=== PATIENT | female | born 1995 | race African-American/Black ===

== ENCOUNTER 2017-05-02 12:09 | Emergency (ER) | payer SELFPAY ==
[2017-05-02 12:16] VITALS: BP 145/89; PULSE 77; TEMP 98.2; BMI 44.1
--- NOTE | 2017-05-02 13:15 | PDOC ---
History of Present Illness - General Chief Complaint: Pain Stated Complaint: PAIN Time Seen by Provider: 05/02/17 12:51 History Source: Patient Exam Limitations: No Limitations - History of Present Illness Initial Comments: 05/02/17 13:09 Patient is a 22-year-old female, [id number] diabetic currently started taking metformin. Patient presents with "weird sensation in her chest". Small morning she felt a palpable mass between both breasts on the medial aspect of the right breast where there is a scar noted patient has history of abscess to exactly same area after she felt the nodule she started to feel short of breath and pain in her chest. Pain is Nonradiating, patient also states that she recently started taking metformin and has not been feeling well on it. Patient lives in a home with no air conditioning only a fan. Upon arrival to emergency department patient denies any symptoms. No chest pain or shortness of breath, no back pain or jaw pain, no arm pain. Past Medical History: Denies. Allergies: No known allergies Medications: Family History: Non-contributory Social History: Denies smoking, alcohol use, or IVDU Vital signs on arrival are notable for pulse of 77. Review of Systems GENERAL/CONSTITUTIONAL: No fever or chills. No weakness. No weight change. HEAD, EYES, EARS, NOSE AND THROAT: No change in vision. No ear pain or discharge. No sore throat. CARDIOVASCULAR: No chest pain or shortness of breath. RESPIRATORY: No cough, wheezing, or hemoptysis. GASTROINTESTINAL: No nausea, vomiting, diarrhea or constipation. No rectal bleeding. GENITOURINARY: No dysuria, frequency, or change in urination. MUSCULOSKELETAL: No joint or muscle swelling or pain. No neck or back pain. SKIN AND BREASTS: No rash or easy bruising. There is a palpable hardened area to right medial breast with scar tissue NEUROLOGIC: No headache, vertigo, loss of consciousness, or loss of sensation. PSYCHIATRIC: No depression or anxiety. ENDOCRINE: No increased thirst. No abnormal weight change. HEMATOLOGIC/LYMPHATIC: No anemia, easy bleeding, or history of blood clots. ALLERGIC/IMMUNOLOGIC: No hives or skin allergy. No latex allergy. Physical Exam: GENERAL: The patient is awake, alert, and fully oriented, in no acute distress. EYES: Pupils equal, round and reactive to light, extraocular movements intact, sclera anicteric, conjunctiva clear. ENT: Ears normal, nares patent, oropharynx clear without exudates. Moist mucous membranes. No uvula deviation NECK: Normal range of motion, supple without lymphadenopathy, JVD, or masses. LUNGS: Breath sounds equal, clear to auscultation bilaterally. No wheezes, and no crackles. HEART: Regular rate and rhythm, normal S1 and S2 without murmur, rub or gallop. ABDOMEN: Soft, nontender, normoactive bowel sounds. No guarding, no rebound. No masses. No bruising or abrasions MUSCULOSKELETAL: Normal range of motion, no edema. No clubbing or cyanosis. No cords, erythema, or tenderness. No CVA Tenderness with fist Palpation. Pain on palpation to musculature of chest. NEUROLOGICAL: Cranial nerves II through XII grossly intact. Normal speech, normal gait SKIN: Scar tissue to the right medial breast, palpable hardened area with no warmth or surrounding redness. Streaking. Past History - Past Medical History Allergies/Adverse Reactions: Allergies Allergy/AdvReac Type Severity Reaction Status Date / Time No Known Allergies Allergy Verified 05/02/17 12:17 Home Medications: Ambulatory Orders Albuterol Sulfate Inhaler - [Ventolin HFA Inhaler -] 1 - 2 inh PO Q4H #1 inhaler 05/02/17 Ibuprofen [Motrin -] 600 mg PO TID #21 tablet 05/02/17 Metformin HCl 500 mg PO DAILY 05/02/17 Diabetes: Yes - Immunization History Immunization Up to Date: Yes - Psycho/Social/Smoking Cessation Hx Anxiety: No Suicidal Ideation: No Smoking Status: Yes Smoking History: Current every day smoker Number of Cigarettes Smoked Daily: 4 Information on smoking cessation initiated: No *Physical Exam - Vital Signs Last Vital Signs Temp Pulse Resp BP Pulse Ox 98.2 F 77 18 145/89 100 05/02/17 12:13 05/02/17 12:13 05/02/17 12:13 05/02/17 12:13 05/02/17 12:13 ED Treatment Course - RADIOLOGY Radiology Studies Ordered: Category Date Time Status CHEST PA & LAT [RAD] Stat Radiology 05/02/17 13:06 Ordered Medical Decision Making - Medical Decision Making 05/02/17 13:15 A/P: Patient with chest pain, reproducible with palpation of the chest. Patient with clinical signs of costochondritis however will rule out cardiac etiology. PLan: Chest x-ray, EKG, blood glucose Fingerstick was 169, chest x-ray with no acute cardiopulmonary disease. Twelve-lead EKG was performed and reviewed by me. There is normal sinus rhythm with a normal rate. The axis is normal. The intervals are normal. There are no ST or T wave abnormalities. Impression: Normal twelve-lead EKG. We'll give Motrin 600 mg then reassess patient's pain level, patient reports that pain comes and goes, producible with movement. 05/02/17 14:43 Patient is requesting to leave. Reports that she still has pain, was made aware that the chest xray and the EKG are normal. She is stating that she has mild discomfort on inspiration Combivent given. She states she feels better after Combivent Patient with costochondritis will DC patient home. I discussed the physical exam findings, ancillary test results and final diagnoses with the patient. I answered all of the patient's questions. The patient was satisfied with the care received and felt comfortable with the discharge plan and treatment plan. The patient will call to arrange follow-up and will return to the Emergency Department with any new, persistent or worsening symptoms. *DC/Admit/Observation/Transfer Diagnosis at time of Disposition: Costal chondritis - Discharge Dispostion Disposition: HOME Condition at time of disposition: Good Admit: No - Prescriptions Prescriptions: Ibuprofen [Motrin -] 600 mg PO TID #21 tablet Albuterol Sulfate Inhaler - [Ventolin HFA Inhaler -] 1 - 2 inh PO Q4H #1 inhaler - Referrals Referrals: Eliazar Leos MD [Primary Care Provider] - - Patient Instructions Printed Discharge Instructions: DI for Costochondritis Additional Instructions: Please refrain from laying on stomach. Please return to the Er with any increased pain, shortness of breath, back pain , jaw pain, fever, or any other concerns. - Post Discharge Activity Work/School Note: Back to Work
[2017-05-02] MEDS ORDERED: IBUPROFEN 600 MG TABLET (FP) PO ONE ×2 (13:54→13:57)
[2017-05-02] MEDS ORDERED: ALBUTEROL SO4 2.5/IPRATROPIUM 0.5 INH SOL 3 ML VIAL.NEB. NEB ONE ×2 (14:32→14:44)
--- NOTE | 2017-05-03 12:54 | EKG ---
Test Reason : Blood Pressure : / mmHG Vent. Rate : 064 BPM Atrial Rate : 064 BPM P-R Int : 154 ms QRS Dur : 098 ms QT Int : 388 ms P-R-T Axes : 026 041 027 degrees QTc Int : 400 ms NORMAL SINUS RHYTHM WITH SINUS ARRHYTHMIA NORMAL ECG NO PREVIOUS ECGS AVAILABLE Confirmed by ELISHA LIRIANO MD ([id number]) on 05/03/2017 12:54:06 PM Referred By: TERESA Confirmed By:ELISHA LIRIANO MD
== END 2017-05-02 15:03 | disposition home or self-care (01) ==
LOC: JERFT 12:09
PROC: 3E0F7GC Introduction of Other Therapeutic Substance into Respiratory Tract, Via Natural or Artificial Opening (ICD-10-PCS; principal; 2017-05-02)
DX: M94.0 Chondrocostal junction syndrome [Tietze] (principal); E11.9 Type 2 diabetes mellitus without complications; Z79.84 Long term (current) use of oral hypoglycemic drugs; F17.210 Nicotine dependence, cigarettes, uncomplicated
CPT/HCPCS: 71020-TC; 93005; 93010; 99281-25

== ENCOUNTER 2021-09-06 01:04 | Emergency (ER) | payer OTHER ==
[2021-09-06 01:25] VITALS: BP 144/103; PULSE 117; TEMP 98.4; BMI 34.0
[2021-09-06] MEDS ORDERED: SODIUM CHLORIDE 0.9% 500 ML INFUS.BAG IV ONE (01:37)
[2021-09-06] MEDS ORDERED: ACETAMINOPHEN 325 MG TABLET (FP) PO ONE (01:37)
[2021-09-06] MEDS ORDERED: ONDANSETRON 4 MG/2 ML VIAL IVPUSH ONE (02:13)
[2021-09-06] MEDS ORDERED: ONDANSETRON 4 MG/2 ML VIAL ONE (02:42)
[2021-09-06] MEDS ORDERED: ACETAMINOPHEN 325 MG TABLET (FP) ONE (02:42)
== END 2021-09-06 03:29 | disposition left against medical advice (07) ==
LOC: JER 01:04
PROC: 3E033GC Introduction of Other Therapeutic Substance into Peripheral Vein, Percutaneous Approach (ICD-10-PCS; principal; 2021-09-06)
DX: R10.30 Lower abdominal pain, unspecified (principal)
CPT/HCPCS: 99283-25

== ENCOUNTER 2022-05-18 18:26 | Emergency (ER) | payer OTHER ==
[2022-05-18 18:39] VITALS: RESP 18; TEMP 98.1; BMI 36.1
[2022-05-18] MEDS ORDERED: DOXYCYCLINE HYCLATE 100 MG CAPSULE PO ONE ×2 (20:23→20:34)
[2022-05-18] MEDS ORDERED: cefTRIAXone SODIUM 1 GM VIAL ONE (20:34)
[2022-05-18] MEDS ORDERED: LIDOCAINE HCL 1%, 10 MG/ML (20ML VIAL) ONE (20:34)
[2022-05-18] MEDS ORDERED: LISINOPRIL 5 MG TABLET ONE (20:35)
[2022-05-18] MEDS ORDERED: LISINOPRIL 5 MG TABLET PO ONE (20:35)
[2022-05-18 21:11] LABS: URINE APPEARANCE CLEAR; URINE BILIRUBIN NEGATIVE (NEGATIVE); URINE COLOR YELLOW; URINE GLUCOSE (UA) 2+ (NEGATIVE); URINE KETONE TRACE (NEGATIVE); URINE LEUK ESTERASE NEGATIVE (NEGATIVE); URINE NITRITE NEGATIVE (NEGATIVE); URINE PROTEIN NEGATIVE (NEGATIVE)
[2022-05-18 21:12] LABS: CALCIUM 9.5 mg/dL (8.5-10.1)
[2022-05-18 21:13] LABS: ALBUMIN 4.1 g/dl (3.4-5.0); BLOOD UREA NITROGEN 11.4 mg/dL (7-18); EOS % 1.2 % (0-4.5); HEMATOCRIT 43.5 % (32.4-45.2); LYMPH % 45.3 % (8-40); MCH 29.4 pg (25.7-33.7); MCHC 34.4 g/dl (32.0-36.0); MEAN CELL VOLUME 85.5 fl (80-96); MEAN PLT VOLUME 10.3 fl (7.5-11.1); MONO % 7.1 % (3.8-10.2); NEUT % 45.4 % (42.8-82.8); PLATELET COUNT 346 10^3/uL (134-434); RBC 5.09 M/mm3 (3.60-5.2); RDW 13.8 % (11.6-15.6)
[2022-05-18 21:16] LABS: CREATININE 0.7 mg/dL (0.55-1.3)
[2022-05-18 21:17] LABS: TOT PROT 8.4 g/dl (6.4-8.2)
[2022-05-18 21:18] LABS: BILIRUBIN,TOTAL 0.3 mg/dL (0.2-1)
[2022-05-18] MEDS ORDERED: ACETAMINOPHEN 325 MG TABLET (FP) PO ONE (21:36)
[2022-05-18] MEDS ORDERED: ACETAMINOPHEN 325 MG TABLET (FP) ONE (21:40)
[2022-05-18 21:50] LABS: HCG,QUALITATIVE URINE Negative
[2022-05-18 22:24] VITALS: BP 159/102; PULSE 72
== END 2022-05-18 22:35 | disposition home or self-care (01) ==
LOC: JER 18:26
PROC: 3E023GC Introduction of Other Therapeutic Substance into Muscle, Percutaneous Approach (ICD-10-PCS; principal; 2022-05-18)
DX: R07.89 Other chest pain (principal); N89.8 Other specified noninflammatory disorders of vagina; I10 Essential (primary) hypertension
CPT/HCPCS: 36415; 80053; 81003; 84484; 84703; 85025; 87086; 87491; 87591; 93005; 93010; 99284-25; C9803-CS; U0003; U0005

== ENCOUNTER 2023-12-21 15:52 | Emergency (ER) | payer OTHER ==
[2023-12-21 16:04] VITALS: BP 113/87; PULSE 98; RESP 18; TEMP 98.7; BMI 32.8
[2023-12-21] MEDS ORDERED: ACETAMINOPHEN 500 MG TABLET (FP) ONE ×2 (17:28→17:29)
[2023-12-21] MEDS: ACETAMINOPHEN 500 MG TABLET (FP) PO ONE (18:00)
[2023-12-21 19:24] LABS: POTASSIUM 3.9 mmol/L (3.5-5.1)
[2023-12-21 19:26] LABS: CALCIUM 10.2 mg/dL (8.5-10.1)
[2023-12-21 19:27] LABS: ALBUMIN 4.1 g/dl (3.4-5.0); BLOOD UREA NITROGEN 13.5 mg/dL (7-18)
[2023-12-21 19:30] LABS: CREATININE 0.6 mg/dL (0.55-1.3)
[2023-12-21 19:31] LABS: BILIRUBIN,TOTAL 0.5 mg/dL (0.2-1); TOT PROT 8.2 g/dl (6.4-8.2)
[2023-12-21 19:36] LABS: BASO % 0.4 % (0-2.0); EOS % 1.5 % (0-4.5); HEMATOCRIT 44.4 % (32.4-45.2); HEMOGLOBIN 14.6 GM/dL (10.7-15.3); LYMPH % 41.3 % (8-40); MCH 29.8 pg (25.7-33.7); MCHC 32.8 g/dl (32.0-36.0); MEAN CELL VOLUME 90.9 fl (80-96); MEAN PLT VOLUME 10.2 fl (7.5-11.1); MONO % 7.2 % (3.8-10.2); NEUT % 49.6 % (42.8-82.8); PLATELET COUNT 265 10^3/uL (134-434); RBC 4.89 M/mm3 (3.60-5.2); RDW 12.9 % (11.6-15.6); WHITE BLOOD COUNT 7.6 K/mm3 (4.0-10.0)
== END 2023-12-21 20:49 | disposition home or self-care (01) ==
LOC: JER 15:52
DX: R07.89 Other chest pain (principal); M54.2 Cervicalgia; R10.84 Generalized abdominal pain; R42 Dizziness and giddiness; Z20.822 Contact with and (suspected) exposure to COVID-19
CPT/HCPCS: 0241U-QW; 36415; 71046-TC-FY; 76830-TC; 80053; 82550; 84484; 84703; 85025; 85379; 87491; 87591; 93005; 93010; 99285-25